=== PATIENT | female | born 1985 | race Caucasian/White ===

== ENCOUNTER 2025-02-22 12:33 | Emergency (ER) | payer OTHER ==
[~2025-02-22] VITALS: Ht 149.9 cm; Wt 63.8 kg
--- NOTE | 2025-02-22 13:47 | ED.PDOC ---
GI ASSESSMENT HPI Comments A 40 year old female presents to the ED c/o abdominal pain onset Wednesday (02/17/2025). Patient states that her pain is localized to her suprapubic region, nonradiating, describes as cramping, and rates her pain a 7/10. Patient mentions that she initially went to urgent care and was tested for a UTI, but states that her results were negative for UTI. Patient reports that he abdomen is also distended/bloated at this time, when it normally is not. Patient denies any other associated symptoms. Denies fever, SOB, chest pain, nausea, vomiting, diarrhea, headache, dizziness, vision changes, or numbness/tingling of extremities. No other symptoms or modifying factors reported at this time. Patient is alert and oriented x4 and has a stable gait. Chief Complaint: Abdominal Pain Time Seen by MD: 13:37 Primary Care Provider: ERIKA Reviewed Notes: Nurses Notes, Medications, Allergies Allergies: Coded Allergies: NO KNOWN ALLERGIES (Unverified , 02/22/25) Information Source: Patient Mode of Arrival: Ambulatory Timing: Days Duration: Since onset Prehospital treatment: None Quality: Cramping Vomitus: None Stool: Normal Severity: Moderate Recent: None Recent Hx of: None Pain Location: Suprapubic Associated sign and symptoms: Abdominal Pain Past Medical History PAST MEDICAL HISTORY: Denies Surgical History: ANIMATION ARTIST History: Denies all ANIMATION ARTIST Hx Family History Family History: Reviewed,noncontributory to illness Social History Smoker: Non-Smoker Alcohol: Denies ETOH Use Drugs: Denies Drug Use Lives In: Home Constitutional: denies: chills, diaphoresis, fatigue, fever, malaise, sweats, weakness, others EENTM: denies: blurred vision, double vision, ear bleeding, ear discharge, ear drainage, ear pain, ear ringing, eye pain, eye redness, hearing loss, mouth pain, mouth swelling, nasal discharge, nose bleeding, nose congestion, nose pain, photophobia, tearing, throat pain, throat swelling, voice changes, others Respiratory: denies: cough, hemoptysis, orthopnea, SOB at rest, shortness of breath, SOB with excertion, stridor, wheezing, others Cardiovascular: denies: chest pain, dizzy spells, diaphoresis, Dyspnea on exertion, edema, irregular heart beat, left arm pain, lightheadedness, palpitations, PND, syncope, others Gastrointestinal: reports: abdomen distended, abdominal pain; denies: blood streaked bowels, constipated, diarrhea, dysphagia, difficulty swallowing, hematemesis, melena, nausea, poor appetite, poor fluid intake, rectal bleeding, rectal pain, vomiting, others Genitourinary: denies: abnormal vagina bleeding, burning, dyspareunia, dysuria, flank pain, frequency, hematuria, incontinence, pain, , vagina discharge, urgency, others Neurological: denies: dizziness, fainting, headache, left sided numbness, left sided weakness, numbness, paresthesia, pre-existing deficit, right sided numbness, right sided weakness, seizure, speech problems, tingling, tremors, weakness, others Musculoskeletal: denies: back pain, gout, joint pain, joint swelling, muscle pain, muscle stiffness, neck pain, others Integumetry: denies: bruises, change in color, change in hair/nails, dryness, laceration, lesions, lumps, rash, wounds, others Allergic/Immunocompromised: denies: Difficulty Healing, Frequent Infections, Hives, Itching, others Hematologic/Lymphatic: denies: anemia, blood clots, easy bleeding, easy bruising, swollen glands, others Endocrine: denies: excessive hunger, excessive sweating, excessive thirst, excessive urination, flushing, intolerance to cold, intolerance to heat, unexplained weight gain, unexplained weight loss, others Psychiatric: denies: anxiety, bipolar disorder, depression, hopeless, panic disorder, schizophrenia, sleepless, suicidal, others All Other Systems: Reviewed and Negative Physical Exam General Appearance: No Apparent Distress, Normal HEENT: Normal ENT Inspection, Pharynx Normal, TMs Normal Neck: Full Range of Motion, Non-Tender, Normal, Normal Inspection Respiratory: Chest Non-Tender, Lungs Clear, No Accessory Muscle Use, No Respiratory Distress, Normal Breath Sounds Cardiovascular: No Edema, No JVD, No Murmur, No Gallop, Normal Peripheral Pulses, Regular Rate/Rhythm Breast Exam: Deferred Gastrointestinal: Distended, No Organomegaly, No Pulsatile Mass, Normal Bowel Sounds, Suprapubic, Tenderness Genitalia: Deferred Pelvic: Deferred Rectal: Deferred Extremities: No calf tenderness, Normal capillary refill, Normal inspection, Normal range of motion, Non-tender, No pedal edema Musculoskeletal : Apperance: Normal Neurologic: Alert, engineering drafter II-XII nml as Tested, No Motor Deficits, Normal Affect, Normal Mood, No Sensory Deficits Cerebellar Function: Normal Reflexes: Normal Skin: Dry, Normal Color, Warm Lymphatic: No Adenopathy Was a procedure done? Was a procedure done?: No GI differential Dx Differential Diagnosis: Appendicitis, Constipation, Gastroenteritis, Ovarian cyst/torsion, Pancreatitis, Urinary Obstruction, UTI, Electrolyte Imbalance, , Viral, Mass, Kidney Stone X-Ray, Labs, Meds, VS Vital Signs Date Time Temp Pulse Resp B/P (MAP) Pulse Ox O2 Delivery O2 Flow Rate FiO2 02/22/25 13:56 98.2 83 16 127/79 (95) 99 98.2 02/22/25 13:56 83 16 99 Room Air 02/22/25 12:40 98.2 83 16 127/79 (95) 99 98.2 Lab Test 02/22/25 14:05 02/22/25 12:40 Range/Units White Blood Count 6.3 4.4-10.8 10^3/uL Red Blood Count 4.66 4.0-5.20 10^6/uL Hemoglobin 12.0 L 12.2-16.2 g/dL Hematocrit 36.7 36.0-46.0 % Mean Corpuscular Volume 78.8 L 80.0-100.0 fL Mean Corpuscular Hemoglobin 25.7 L 28.0-32.0 pg Mean Corpuscular Hemoglobin Concent 32.6 32.0-36.0 g/dL Red Cell Distribution Width 16.3 H 11.8-14.3 % Platelet Count 230 140-450 10^3/uL Mean Platelet Volume 8.5 6.9-10.8 fL Neutrophils (%) (Auto) 64.7 37.0-80.0 % Lymphocytes (%) (Auto) 24.9 10.0-50.0 % Monocytes (%) (Auto) 5.1 0.0-12.0 % Eosinophils (%) (Auto) 4.4 0.0-7.0 % Basophils (%) (Auto) 0.9 0.0-2.0 % Neutrophils # (Auto) 4.1 1.6-8.6 10 ^3/uL Lymphocytes # (Auto) 1.6 0.4-5.4 10 ^3/uL Monocytes # (Auto) 0.3 0-1.3 10 ^3/uL Eosinophils # (Auto) 0.3 0-0.8 10 ^3/uL Basophils # (Auto) 0.1 0-0.2 10 ^3/uL Nucleated Red Blood Cells 0.0 % Sodium Level 140 136-145 mmol/L Potassium Level 3.8 3.5-5.1 mmol/L Chloride Level 106 98-107 mmol/L Carbon Dioxide Level 26 20-31 mmol/L Anion Gap 8 5-15 Blood Urea Nitrogen 12 9-23 mg/dL Creatinine 0.68 0.550-1.02 mg/dL Glomerular Filtration Rate Calc 114 >90 mL/min BUN/Creatinine Ratio 17.6 10.0-20.0 Serum Glucose 91 74-106 mg/dL Lactic Acid Level 0.8 0.4-2.0 mmol/L Calcium Level 9.2 8.7-10.4 mg/dL Lipase 44 12-53 U/L Urine Color Light-yellow Yellow Urine Clarity Clear Clear Urine pH 7.0 5.0-9.0 Urine Specific [place] 1.024 1.001-1.035 Urine Protein Negative Negative Urine Ketones Negative Negative Urine Blood Negative Negative /uL Urine Nitrite Negative Negative Urine Bilirubin Negative Negative Urine Urobilinogen Normal Negative mg/dL Urine Leukocyte Esterase Negative Negative /uL Urine RBC <1 0 - 4 /hpf Urine Microscopic WBC < 1 0-5 /HPF Urine Squamous Epithelial Cells Few <5 /hpf Urine Bacteria Few H None Seen /hpf Urine Hyaline Casts Few 0 - 2 /lpf Urine Mucus Few None Seen Urine Glucose Normal Normal mg/dL Urine Test Negative Negative PATIENT: CROW HASTINGSACCT: [id number]: [id number] : 1985 LOC: ER ROOM / BED: / AGE / SEX: 40 / F ADM STATUS: REG ER SERVICE 1503 ORDERING PHYSICIAN: JOSE LORENZO NP PROCEDURE(s): ABPLIV - CT AB PEL WITH IV CON ONLY REASON: Ab/pelvic pain ORDER NUMBER(s): [id number], ACCESSION NUMBER(s): [id number] CT ABDOMEN AND PELVIS WITH CONTRAST CLINICAL HISTORY: Ab/pelvic pain TECHNIQUE: TECHNIQUE: Multiple contiguous axial images of the abdomen and pelvis were performed with intravenous contrast.. The images were reformatted to generated coronal and sagittal reconstructions. 100 cc of Omnipaque 350 contrast was injected intravenously. Radiation optimization: All CT scans at this facility use at least one of these dose optimization techniques: automated exposure control mA and/or kV adjustment per patient size (includes targeted exams where dose is matched to clinical indication) or iterative reconstruction. Radiation Dose Information: CT Dose: CTDI volume is 9 mGy. Dose-length product is 499 mGy*cm Comparison: None FINDINGS: There is fatty infiltration of the liver. The gallbladder, pancreas, kidneys, adrenal glands, and spleen appear within normal limits. There is no evidence of abdominal lymphadenopathy. There is no free fluid or free air. The stomach grossly appears within normal limits. The small and large bowel loops demonstrate normal caliber. A normal appearing appendix is seen in the right lower quadrant abdomen. The abdominal aorta and IVC appear within normal limits. The bladder appears unremarkable. There is nonspecific hypodense fluid in the uterine cavity. There are multiple dilated serpiginous left periuterine vessels in the dilated left ovarian vein. Findings are compatible with pelvic congestion syndrome. There is no evidence of a pelvic mass or lymphadenopathy. There is small amount of free fluid in the pelvis. Lung bases are clear. There is no acute osseous abnormality. IMPRESSION: 1. There is no acute process in the abdomen and pelvis. 2. Nonspecific hypodense fluid in the uterine cavity. There is also small amount of free fluid in the pelvis. Further evaluation with dedicated pelvic ultrasound is recommended. 3. Findings consistent with pelvic congestion syndrome. 4. Hepatic steatosis. HS:Y ATED BY: SURENDRA BOTELLO MD DICTATED DATE/TIME: 02/22/251620 SIGNED BY: SURENDRA BOTELLO MD SIGNED DATE/TIME: 02/22/251620 CC: PATIENT: CROW HASTINGSACCT: [id number] UNIT: [id number] : 1985 LOC: ER ROOM / BED: / AGE / SEX: 40 / F ADM STATUS: REG ER SERVICE 25 ORDERING PHYSICIAN: JOSE LORENZO NP PROCEDURE(s): PELUS - PELVIC REASON: pelvic pain. pelvic congestion syndrome ORDER NUMBER(s): [id number], ACCESSION NUMBER(s): [id number] Procedure: US PELVIC Study Date and Requested Time: 02/22/2025 04:34 PM Study Description: US PELVIC History: pelvic pain. pelvic congestion syndrome Comparison: None Technique: Multiple transabdominal and transvaginal high resolution talamantes-scale images obtained of the uterus and adnexa with color Doppler for evaluation of adnexal blood flow and vascularity as indicated. Findings: Uterus measures 8 x 4 x 4 cm with 2 x 1.7 x 1.9 cm 0.9 fibroid. Endometrium within normal limits, measuring 0.8 cm in thickness with smooth contour. Cervix within normal limits with a 0.9 cm nabothian cyst. Right ovary measures 3.8 x 1.7 x 2.5 cm with a 0.8 cm dominant follicle. Left ovary measures 2.2 x 1.6 x 1.8 cm with a 0.8 cm dominant follicle. Normal ovarian color Doppler flow bilaterally. No evidence of free fluid in the cul-de-sac. Dilated vessels of the left adnexa. Impression: Suggested fibroid uterus. Dilated vessels over the left adnexa. Correlate for possible pelvic congestion syndrome. ATED BY: SARAI KIMBLE DO DICTATED DATE/TIME: 02/22/251743 SIGNED BY: SARAI KIMBLE DO SIGNED DATE/TIME: 02/22/251743 CC: X-Ray, Labs, Meds, VS Comment A 40 year old female presents to the ED c/o abdominal pain onset Wednesday (02/17/2025). Patient arrives alert and oriented, ABC's intact, afebrile, vital signs stable, saturating well in room air After ROS and physical examination, differentials considered but not limited to: Peripheral IV insertion+ labs were ordered. Labs in the ED showed: WBC 6.3 hemoglobin 12 neutrophils 64.7 sodium potassium chloride reassuring creatine EGFR BUN creatinine within normal limits, lactic 0.8, calcium lipase with a normal limits UA preg negative Pelvic US: Impression: Suggested fibroid uterus. Dilated vessels over the left adnexa. Correlate for possible pelvic congestion syndrome. Test results and diagnostic imaging interpreted. All diagnostic findings, discharge care, education and instructions provided Follow-up with PCP in 2 to 3 days Patient verbalized understanding and agreed to treatment plan Vital signs stable, afebrile, no acute distress noted Patient ambulatory with strong steady gait Advised to return precautions for any new or worsening symptoms, return to ER immediately for re-evaluation Patient is aware that the purpose of this visit was for an acute medical emergen cy requiring emergent stabilization. Chronic conditions, including malignancies have not been ruled out. Patient is instructed to follow up with PCP as directed and discharge instructions for continued care and workup. If unable to arrange follow-up, patient is to return to the emergency department for reassessment. Patient (parent or legal guardian if applicable) was given verbal and written discharge instructions and acknowledges understanding. Additional MDM: Review of External, Non-ED records: External records reviewed. Discussion with independent historian (EMS, family) history obtained from the patient at bedside Chronic conditions affecting care: none Social determinants of health affecting care: none Consideration of admission (observation or admission): I considered escalation of care to admission for this patient, however given the reassuring workup, the patient is safe for outpatient management. Time of 1ST Reevaluation: 14:07 Reevaluation 1ST: Improved Patient Education/Counseling: Diagnosis, Treatment, Need For Follow Up Family Education/Counseling: No Family Present Departure 1 Departure Time of Disposition: 17:50 Impression: Primary Impression: Uterine fibroid Qualified Codes: D25.9 - Leiomyoma of uterus, unspecified Additional Impression: Pelvic pain Disposition: 01 HOME / SELF CARE / HOMELESS Condition: Fair Critical Care Note Critical Care Time?: No Stability Stability form required: No Heart Score Heart Score: Heart Score Response (Comments) Value History N/A 0 EKG N/A 0 Age N/A 0 Risk Factors N/A 0 Troponin N/A 0 Total 0 I personally scribed for JOSE LORENZO NP ([email or web address]) on 02/22/25 at 13:47. Electronically submitted by Abel Lees ([email or web address]). JOSE LORENZO NP February 22, 2025 13:47
[2025-02-22 13:56] VITALS: BP 127/79; PULSE 83; RESP 16; TEMP 98.2; O2SAT 99
[2025-02-22 14:23] LABS: Basophils # (auto) 0.1 10 ^3/uL (0-0.2); Basophils % (auto) 0.9 % (0.0-2.0); Eosinophils # (auto) 0.3 10 ^3/uL (0-0.8); Eosinophils % (auto) 4.4 % (0.0-7.0); Hematocrit 36.7 % (36.0-46.0); Lymphocytes # (auto) 1.6 10 ^3/uL (0.4-5.4); Lymphocytes % (auto) 24.9 % (10.0-50.0); Mean Corpuscular Hemoglobin 25.7 pg (28.0-32.0); Mean Corpuscular Hgb Conc. 32.6 g/dL (32.0-36.0); Mean Corpuscular Volume 78.8 fL (80.0-100.0); Monocytes # (auto) 0.3 10 ^3/uL (0-1.3); Monocytes % (auto) 5.1 % (0.0-12.0); Neutrophils # (auto) 4.1 10 ^3/uL (1.6-8.6); Neutrophils % (auto) 64.7 % (37.0-80.0); Platelet Count (auto) 230 10^3/uL (140-450); Red Blood Cells 4.66 10^6/uL (4.0-5.20); Red Cell Distribution Width 16.3 % (11.8-14.3); White Blood Cell 6.3 10^3/uL (4.4-10.8)
[2025-02-22 14:30] LABS: Chloride 106 mmol/L (98-107); Potassium 3.8 mmol/L (3.5-5.1); Sodium 140 mmol/L (136-145)
[2025-02-22 14:31] LABS: Anion Gap 8 (5-15); Calcium 9.2 mg/dL (8.7-10.4); Carbon Dioxide 26 mmol/L (20-31)
[2025-02-22 14:36] LABS: BUN/Creatinine Ratio 17.6 (10.0-20.0); Blood Urea Nitrogen 12 mg/dL (9-23); Glucose 91 mg/dL (74-106); Lipase 44 U/L (12-53)
[2025-02-22 14:55] LABS: Urine Bacteria FEW /hpf (None Seen); Urine Blood Negative /uL (Negative); Urine Clarity Clear (Clear); Urine Color Light-Yellow (Yellow); Urine Hyaline Cast FEW /lpf (0 - 2); Urine Mucus FEW (None Seen); Urine Protein, UAD Negative (Negative); Urine Specific Gravity 1.024 (1.001-1.035); Urine Squamous Epithelial Cell FEW /hpf (<5); Urine Urobilinogen Normal (Negative); Urine WBC < 1 /HPF (0-5)
[2025-02-22] MEDS: IOHEXOL 300 MG/ML 100ML BOTTLE IJ ONE (15:49)
--- NOTE | 2025-02-22 16:24 | DVH ---
CT ABDOMEN AND PELVIS WITH CONTRAST CLINICAL HISTORY: Ab/pelvic pain TECHNIQUE: TECHNIQUE: Multiple contiguous axial images of the abdomen and pelvis were performed with intravenous contrast.. The images were reformatted to generated coronal and sagittal reconstructions. 100 cc of Omnipaque 350 contrast was injected intravenously. Radiation optimization: All CT scans at this facility use at least one of these dose optimization edgrad hniques: automated exposure control mA and/or kV adjustment per patient size (includes targeted exam s where dose is matched to clinical indication) or iterative reconstruction. Radiation Dose Information: CT Dose: CTDI volume is 9 mGy. Dose-length product is 499 mGy*cm Comparison: None FINDINGS: There is fatty infiltration of the liver. The gallbladder, pancreas, kidneys, adrenal glands, and s pleen appear within normal limits. There is no evidence of abdominal lymphadenopathy. There is no free fluid or free air. The stomach grossly appears within normal limits. The small and large bowel loops demonstrate normal caliber. A normal appearing appendix is seen in the right lower quadrant abdomen. The abdominal aorta and IVC appear within normal limits. The bladder appears unremarkable. There is nonspecific hypodense fluid in the uterine cavity. There are multiple dilated serpiginous left periuterine vessels in the dilated left ovarian vein. Findings are compatible with pelvic congestion syndrome. There is no evidence of a pelvic mass or lymphadenop athy. There is small amount of free fluid in the pelvis. Lung bases are clear. There is no acute osseous abnormality. IMPRESSION: 1. There is no acute process in the abdomen and pelvis. 2. Nonspecific hypodense fluid in the uterine cavity. There is also small amount of free fluid in the pelvis. Further evaluation with dedicated pelvic ultrasound is recommended. 3. Findings consistent with pelvic congestion syndrome. 4. Hepatic steatosis. HS:Y
--- NOTE | 2025-02-22 17:47 | DVH ---
Procedure: US PELVIC Study Date and Requested Time: 02/22/2025 04:34 PM Study Description: US PELVIC History: pelvic pain. pelvic congestion syndrome Comparison: None Technique: Multiple transabdominal and transvaginal high resolution talamantes-scale images obtained of the uterus and adnexa with color Doppler for evaluation of adnexal blood flow and vascularity as indicat ed. Findings: Uterus measures 8 x 4 x 4 cm with 2 x 1.7 x 1.9 cm 0.9 fibroid. Endometrium within normal limits, me asuring 0.8 cm in thickness with smooth contour. Cervix within normal limits with a 0.9 cm nabothian cyst. Right ovary measures 3.8 x 1.7 x 2.5 cm with a 0.8 cm dominant follicle. Left ovary measures 2.2 x 1. 6 x 1.8 cm with a 0.8 cm dominant follicle. Normal ovarian color Doppler flow bilaterally. No evidence of free fluid in the cul-de-sac. Dilated vessels of the left adnexa. Impression: Suggested fibroid uterus. Dilated vessels over the left adnexa. Correlate for possible pelvic congestion syndrome.
== END 2025-02-22 17:58 | disposition home or self-care (01) ==
LOC: ER 12:37
DX: D25.9 Leiomyoma of uterus, unspecified (principal); Z98.890 Other specified postprocedural states
CPT/HCPCS: 36415; 74177; 76830; 76856; 80048; 81001; 81025; 83605; 83690; 85025; 99285; Q9967